=== PATIENT | male | born 1945 | race Caucasian/White ===

== ENCOUNTER 2018-11-11 10:27 | Inpatient (IN) | payer MEDICARE, BC ==
[2018-10-30 09:29] LABS: ABSOLUTE BASOPHILS 0.1 thou/uL (0.0-0.2); ABSOLUTE EOSINOPHILS 0.3 thou/uL (0.0-0.7); ABSOLUTE MONOCYTES 0.9 thou/uL (0.0-1.2); ABSOLUTE NEUTROPHILS 6.2 thou/uL (1.6-8.1); BASOPHILS 1.1 %; EOSINOPHILS 3.5 %; HEMATOCRIT 40.6 % (42.0-52.0); HEMOGLOBIN 13.9 gm/dL (14.0-18.0); LYMPHOCYTES 20.7 %; MCH 30.9 pg (26.0-34.0); MCHC 34.3 g/dL (28.0-37.0); MCV 90.1 fL (80.0-100.0); MONOCYTES 9.1 %; MPV 8.1 fl. (7.2-11.1); NUCLEATED RBCS 0 /100WBC; PLATELET COUNT* 213 thou/uL (150-400); POLYS 65.6 %; WBC 9.4 thou/uL (4.0-11.0)
[2018-10-30 09:40] LABS: ALBUMIN 3.5 g/dL (3.4-5.0); CALCIUM 9.1 mg/dL (8.5-10.1); POTASSIUM 3.2 mmol/L (3.5-5.1); TOTAL PROTEIN 7.3 g/dL (6.4-8.2)
[2018-10-30 10:01] LABS: APTT 27.8 Seconds (25.0-31.3); PROTIME 10.3 Seconds (9.20-11.50)
[2018-10-30 10:42] LABS: ESR (SEDRATE) 21 mm/hr (0-20)
[~2018-11-11] VITALS: Ht 185.4 cm; Wt 134.3 kg
--- NOTE | ~2018-11-11 | OP ---
[place] [place] [address] OPERATIVE REPORT Name: GARSIAPANTERA Andrei Room: [address] [place] .R.#: [id number] Admission: 11/11/18 Attend Phys: Len Doty Discharge: Date of : 45 Report #: [id number] THIS REPORT FOR: //name// CC: Krzysztof Mireles DICTATED BY: Darnell Silva DO DATE OF SERVICE: 11/11/2018 PREOPERATIVE DIAGNOSES: 1. Advanced left knee osteoarthritis with varus deformity. 2. Obesity with BMI of 40. POSTOPERATIVE DIAGNOSES: 1. Advanced left knee osteoarthritis with varus deformity. 2. Obesity with BMI of 40. PROCEDURE: Left total knee arthroplasty with a Ford Persona total knee system with the following components. 1. Size 10 left PS femoral component. 2. Size G tibial baseplate. 3. A 16 mm tibial polyethylene spacer. 4. A 38 mm diameter patella polyethylene implant. 5. Two bags Palacos bone cement. SURGEON: Joaquin Rivero DO CRA OFFICER: Mateusz Farias DO was necessary for exposure, retraction, implantation and closure due to the complexity of the case. SECOND BELT SPLICER: Darnell Silva DO ANESTHESIA: General with left lower extremity nerve block performed by anesthesia. ESTIMATED BLOOD LOSS: 100 mL. TOURNIQUET TIME: 24 minutes at 350 mmHg to left lower extremity. SPECIMENS: None. DRAINS: None. COMPLICATIONS: None. [address] [address] OPERATIVE REPORT Name: PANTERA GARSIA Room: [address] [place] .R.#: [id number] Admission: 11/11/18 Attend Phys: Len Doty Discharge: Date of : 45 Report #: [id number] DISPOSITION: Stable to PACU and will admitted to the hospital for standard postoperative care. INDICATION FOR PROCEDURE: The patient is a pleasant 73-year-old male who was seen in Orthopedic Clinic with complaints of chronic worsening left knee pain. On radiographs, he was found to have advanced degenerative joint disease changes with complete obliteration of medial joint space with lzjy-hp-[id number] apposition and varus deformity. The pain was refractory to conservative measures consisting of oral anti-inflammatories, activity modifications, home physical therapy exercises, intraarticular corticosteroid injections for much greater than 6 months' duration. Pain was greatly impacting his quality of life, prevent him from performing activities that he wishes to. I therefore recommend proceeding with a left total knee arthroplasty. Risks, benefits, complications, indications and alternative treatments were discussed and the patient wished to proceed with surgery today. DESCRIPTION OF PROCEDURE: The patient was seen in preoperative holding area. Correct operative site, left knee was initialed. The patient was taken back to the operating suite and placed in supine position on the operating table, given benefit of general anesthetic. A well-padded tourniquet was placed to left upper thigh. The left lower extremity was prepped and draped in typical fashion. Surgery began with a timeout, identifying correct patient, correct procedure, correct operative site, preoperative antibiotics and correct performing surgeon. Next, standard anterior midline incision was made directly over the left knee starting our incision roughly 3-4 fingerbreadths proximal to the superior pole of the patella, extending distally to the level of the tibial tubercle. Skin was incised with a 10 blade scalpel down to the level of prepatellar fascia. A standard medial parapatellar arthrotomy was performed with a new 10 blade scalpel in the normal fashion. A proximal tibia subperiosteal release was performed on the medial aspect and to a lesser extent on the lateral aspect paying attention to our patellar tendon. The patella was everted, knee was flexed. Intramedullary drill was introduced into the distal femoral medullary canal in the normal position followed by insertion of the intramedullary distal femoral cutting jig. The cutting block was pinned into place. We took a 12 mm resection off our distal femoral cut at 5 degrees valgus. Distal femoral cut performed in the normal fashion. All residual bone was removed. Next, attention was turned to the proximal tibia cut using the extramedullary tibial guide. It was aligned in the normal fashion over the medial third of the tibial tubercle, the tibial crest and at the center of the talus. Appropriate slope was placed in the alignment guide. A 10 mm resection was measured off of the high lateral side. A cutting block was pinned into place and then proximal tibia cut was performed. I utilized an oscillating saw, protecting all surrounding ligamentous and neurovascular structures. Next, attention was then turned back to the femur. AP sizer was placed on the distal femur [place] [address] OPERATIVE REPORT Name: PANTERA GARSIA Room: [address] [place] M.R.#: [id number] Admission: 11/11/18 Attend Phys: Len Doty Discharge: Date of : 45 Report #: [id number] a size 10 femur. A 4-in-1 cutting block was impacted into place in 3 degrees of external rotation after drilling on the AP sizer. Anterior, posterior chamfer cuts were performed utilizing an oscillating saw in the normal fashion. All bony debris was removed. Next, the knee was taken into full extension. A spacer block was inserted at appropriate flexion and extension gaps with our provided spacer block. All cutting jig pins were removed. Next, menisci were excised utilizing electrocautery. Remnants of any remaining PCL and the notch were removed at this time utilizing electrocautery also. Slight posterior capsular release was performed at this time utilizing electrocautery off the distal femur. Trial tibial baseplate was pinned into place in the appropriate amount of rotation and appropriate size followed by impaction of our trial femoral component. Next, our box cut was performed in the distal femur in the normal fashion. Trial spacers were then inserted up to a size 16 mm polyethylene spacer. We had good varus and valgus stability that was symmetric with 1-2 mm of gapping both medially and laterally. Had good mid flexion stability, had full flexion and extension with range of motion. Attention was then turned to the patella. Utilizing the Ford reamer patella system, the patella was cut in the normal fashion. It was sized to a 38 mm spacer. It was drilled in normal fashion. The trial patellar button was placed. Knee was taken through the range of motion with all trial components and patella was tracking appropriately and had great stability throughout range of motion. Next, trial patella, trial femur components were removed as well as the trial polyethylene spacer. Tibia was drilled and punched in normal fashion. Trial tibia baseplate was removed. All bony surfaces were thoroughly irrigated utilizing pulsatile lavage and cement was mixed on the back table. Next, all final components were cemented into place in the normal fashion starting with the tibia followed by the femur and were impacted into place. All excess cement was removed. A trial 16 mm polyethylene spacer was inserted and the knee was held in extension. Then, we placed our final polyethylene patella button. This was held with a patellar clamp. The knee was held in extension until cement had hardened. Knee again was taken through range of motion and felt to be stable with varus valgus stressing in mid flexion and had full flexion and extension. The knee again was flexed. A trial polyethylene spacer was removed. Final irrigation was performed. Any remnant cement posteriorly was removed at this time. A final polyethylene spacer was impacted into place and locked with the standard locking jig. Polyethylene spacer was confirmed to be locked down and the knee again was taken through range of motion and felt stable with varus and valgus stressing, felt stable in mid flexion and had full flexion and extension. A 5-minute Betadine soak was performed. Tourniquet was deflated. No significant bleeders were noted. A thorough washout was performed at this time utilizing pulsatile lavage. Capsule was closed with one nqmoef-ah-llgtn #5 TiCron suture at the superomedial corner of the patella and the remainder of the capsule was closed with #1 Vicryl suture in a gqxdup-kd-dozjh fashion. Subcutaneous tissues were closed in a simple inverted fashion with 2-0 Monocryl suture. A running 3-0 subcuticular Stratafix suture was performed. Dermabond skin glue was applied to the skin. Standard [place] [address] OPERATIVE REPORT Name: PANTERA GARSIA Room: [address] IN [facility].#: [id number] Admission: 11/11/18 Attend Phys: Len Doty Discharge: Date of : 45 Report #: [id number] of Won and JANE andrade. The patient was weaned from general anesthesia and transferred in stable condition to the PACU. All sponge and needle counts were correct x 2. By: [id number] Rivero DO /eneida
[~2018-11-11 10:27] MED LIST: BENICAR20 MG PO; COLACE100 MG PO; COUMADIN 2.5MG2.5 M1 PO; FISH OIL 1,001000 M2 PO; HYDROCHLOROTHIA25 M2 PO; K-DUR 20 MEQ T20 MEQ PO; KEFLEX500 M1 PO; LOPRESSOR50 PO; MEDROL DOSPAK21 TA1 PO; METFORMIN HCL500 MG PO; PEPCID40 MG PO; PERCOCET 5-3251 EACH PO; ROXICODONE5 M1 PO
[2018-11-11 16:34] VITALS: BP 132/65
--- NOTE | 2018-11-11 16:42 | NUR ---
PATIENT TRANSFERRED FROM PACU TO ROOM 118. ALERT AND ORIENTED. PAIN 8/10 BUT WOULD LIKE TO TAKE PAIN PILLS WITH DINNER. WATER PROVIDED. O2 AT 2L. CAPNO IN PLACE- SAT 99%. DRESSING TO LEFT KNEE C/D/I. POLAR CARE, SCD'S AND TEDS IN PLACE. ORIENTED TO ROOM AND ENVIROMENT. IVF INFUSING ORDERED. CONTACT ISOLATION FOR MRSA OF [place]AR[place]. EDUCATED ON FALL PREVENTION. CALL LIGHT WITHIN REACH. WILL CONTINUE TO MONITOR.
[2018-11-11 22:51] VITALS: BP 141/87
[2018-11-12 00:22] VITALS: BP 132/82
[2018-11-12 04:18] LABS: HEMATOCRIT 31.3 % (42.0-52.0); HEMOGLOBIN 10.7 gm/dL (14.0-18.0)
[2018-11-12 04:41] VITALS: BP 114/63
--- NOTE | 2018-11-12 05:28 | NUR ---
ASSUMED CARE OF PATIENT AFTER REPORT AT APPROX 1930. ALERT AND ORIENTED X4. ASSESSMENT COMPLETED AND CHARTED. VSS ON 2 LITERS 02. NO COMPLAINTS OF NAUSEA, OR SOA. PAIN HAS BEEN MANAGED WITH ORAL MEDICATIONS. FLUIDS AND ANTIBIOTICS INFUSED ORDERED, SALINE LOCKED AFTER BAG HAS INFUSED. PATIENT DRINKING PLENTY OF FLUIDS. VOIDING PER URINAL WITHOUT ISSUE. HOURLY ROUNDS COMPLETED. FALL PRECAUTIONS IN PLACE. CALL LIGHT WITHIN REACH, PATIENT USES APPROPRIATELY. NURSING WILL CONTINUE TO MONITOR.
[2018-11-12 08:50] VITALS: BP 107/62
--- NOTE | 2018-11-12 16:42 | NUR ---
RECIEVED O.T. ORDERS. WILL DEFER TO P.T. AND NURSING AT THIS TIME. PLEASE ORDER FURTHER O.T. SERVICES IF NEEDED.
--- NOTE | 2018-11-12 16:54 | NUR ---
PT.AWAKE,EATING SUPPER. SISTER,JULIAN AT BEDSIDE. PT.LIVES ALONE. HE SAID JULIAN IS UP FROM [place] AND WILL BE STAYING WITH HIM FOR 2 WEEKS. PT.HAS A WALKER AT BEDSIDE THAT IS HIS FROM HOME. IS NORMALLY INDPENDENT AT HOME. HE WOULD LIKE TO DO OUTPT.THERAPY AND WANTS TO USE [facility]. PT.SAID HE HAD WANTED A CPM MACHINE BUT DID NOT WANT HIM TO HAVE IT. HE SAID THINGS HAVE CHANGED SINCE HIS LAST JT.SURGERY. CM WILL FOLLOW FOR DISCHARGE.
[2018-11-12 17:30] VITALS: BP 123/66
--- NOTE | 2018-11-12 19:06 | NUR ---
PATIENT REMAINED ALERT AND ORIENTED X'S 4. VITAL SIGNS AND SPO2 STABLE. IV CLEAN, FLUIDS INFUSING. PAIN WELL CONTROLLED WITH PAIN. TOLERATED DIET, NO NAUSEA AND VOMITING. COMPLETED PT/OT. COMPLETED HOURLY ROUNDING. CALL LIGHT WITHIN REACH. WILL CONTINUE TO MONITOR.
[2018-11-12 20:00] VITALS: BP 126/61
[2018-11-12 23:54] VITALS: BP 145/70
[2018-11-13 04:21] LABS: HEMATOCRIT 28.2 % (42.0-52.0); HEMOGLOBIN 10.1 gm/dL (14.0-18.0)
[2018-11-13 04:30] VITALS: BP 132/74
--- NOTE | 2018-11-13 06:18 | NUR ---
PT. PROGRESSING TOWARDS GOALS. POSSIBLE DISCHARGE TODAY. C/O PAIN, HYDROCODONE, OXYCONTIN GIVEN PER PRN ORDERS. HAS SLEPT WELL THIS SHIFT. NO ACUTE CHANGES. CALL LIGHT IN REACH, WILL CONTINUE TO MONITOR.
[2018-11-13 08:00] VITALS: BP 118/54
--- NOTE | 2018-11-13 12:22 | NUR ---
PRIVACY ANALYST SPOKE TO THE PATIENT TO DISCUSS DISCHARGE PLANNING. PATIENT INFORMED THAT HE WOULD DO P.T. AT [facility]. D/C PSYCHOLOGICAL EXAMINER FAXED THE PATIEN'S FACESHET AND P.T. ORDER TO [facility]. D/C PSYCHOLOGICAL EXAMINER INFORMED THE PATIENT OF HIS CO-PAY AMOUNT FOR ELIQUIS ($21.93). PATIENT IN AGREEMENT. PATIENT TO D/C HOME TODAY WITH TRANSPORTATION PROVIDED BY [facility]. CM WILL REMAIN AVAILABLE TO ASSIST AND FOLLOW NEEDED.
[2018-11-13 15:21] VITALS: BP 118/54
[2018-11-13] MEDS ORDERED: ELIQUIS2.5 MG PO (16:22)
[2018-11-13] MEDS ORDERED: BACTRIM DS TAB1 EACH PO (16:24)
[2018-11-13] MEDS ORDERED: OXYCODONE HCL 55 MG PO (16:25)
[2018-11-13] MEDS ORDERED: NORCO 5-325 TA1 EACH PO (16:26)
--- NOTE | 2018-11-13 19:42 | NUR ---
DISCUSSED DC INSTRUCTIONS, PATIENT AND SISTER VERBALIZED UNDERSTANDING. PROVIDED COPY OF ALL DC INSTRUCTIONS. LEFT HOSPITAL WITH SISTER IN PRIVATE VEHICLE AND ALL PERSONAL BELONGINGS.
[2018-11-13 19:45] VITALS: BP 118/54
== END 2018-11-13 15:09 | disposition home or self-care (01) | DRG 470 ==
LOC: M.SUR 10:27 → M.TBA-ER 14:57 → M.ORTHSURG 14:57 → M.SUR 15:36 → M.ORTHSURG 15:38
PROVIDERS: Orthopaedic Surgery; ADMIT Internal Medicine
PROC: 0SRD0J9 Replacement of Left Knee Joint with Synthetic Substitute, Cemented, Open Approach (ICD-10-PCS; principal; 2018-11-11)
DX: M17.12 Unilateral primary osteoarthritis, left knee (principal); Z68.41 Body mass index [BMI] 40.0-44.9, adult; E66.9 Obesity, unspecified; I10 Essential (primary) hypertension; Z96.651 Presence of right artificial knee joint; Z89.111 Acquired absence of right hand; Z98.42 Cataract extraction status, left eye; Z98.41 Cataract extraction status, right eye

== ENCOUNTER → 2019-03-05 | Outpatient (CLI) | payer MEDICARE, BC ==
[~2019-03-05] MED LIST changes: +BACTRIM DS TAB1 EACH PO; +ELIQUIS2.5 MG PO; +NORCO 5-325 TA1 EACH PO; +OXYCODONE HCL 55 MG PO
[2019-03-05 10:53] LABS: POTASSIUM 3.2 mmol/L (3.5-5.1)
== END ==
LOC: M.LAB 04:41
PROVIDERS: Student in an Organized Health Care Education/Training Program
DX: E11.9 Type 2 diabetes mellitus without complications (principal); E87.6 Hypokalemia

== ENCOUNTER 2021-05-24 06:16 | Emergency (ER) | payer MEDICARE, BC ==
[~2021-05-24] VITALS: Ht 185.4 cm; Wt 133.8 kg
[2021-05-24] MEDS ORDERED: EZALLOR SPRINKLE5 MG PO (06:29)
[2021-05-24] MEDS ORDERED: CEPHALEXIN500 MG PO (07:47)
[2021-05-24] MEDS ORDERED: HYDROCODON-ACE1 EAC7 PO ×3 (07:47→07:59)
[2021-05-24] MEDS ORDERED: ACYCLOVIR 800800 MG PO (07:47)
[2021-05-24] MEDS ORDERED: PERCOCET PO (07:57)
[2021-05-24 08:02] VITALS: BP 178/98
== END 2021-05-24 08:02 | disposition home or self-care (01) ==
LOC: M.ERS 06:16
DX: B02.9 Zoster without complications (principal); I10 Essential (primary) hypertension; Z79.84 Long term (current) use of oral hypoglycemic drugs; Z79.899 Other long term (current) drug therapy; Z98.890 Other specified postprocedural states